=== PATIENT | male | born 1970 | race Caucasian/White ===

== ENCOUNTER → 2019-09-12 | Outpatient (CLI) | payer BC ==
[2019-09-12 15:12] LABS: HCT 48.5 % (39.0-53.0); HGB 15.9 gm/dL (13.0-17.5); MCH 30.7 pg (25.0-35.0); MCHC 32.7 g/dL (31.0-37.0); MCV 93.7 fL (80.0-100.0); Mean Platelet Volume 7.2; Platelet Count 234 k/uL (150-450); RBC 5.18 m/uL (4.30-5.90); WBC 8.5 k/uL (3.8-10.6)
[2019-09-12 20:02] LABS: African American GFR (CKD) 102.7 (60.0-200.0); Albumin 4.3 g/dL (3.80-4.90); Albumin/Globulin Ratio 1.79 (1.60-3.17); Calcium 9.4 mg/dL (8.7-10.3); Globulin 2.4 g/dL (1.6-3.3); Non-African American GFR(CKD) 88.6 (60.0-200.0); Potassium 4.3 mmol/L (3.5-5.5); Total Bilirubin 0.4 mg/dL (0.3-1.2); Total Protein 6.7 g/dL (6.2-8.2)
== END | disposition home or self-care (01) ==
LOC: LABWHC1 14:36
PROVIDERS: ATTEND Internal Medicine Gastroenterology
DX: K50.90 Crohn's disease, unspecified, without complications (principal)
CPT/HCPCS: 36415; 80053; 85027

== ENCOUNTER 2023-03-10 10:18 | Day surgery (SDC) | payer BC ==
[2023-03-08 16:00] VITALS: BMI 31.8
[2023-03-10] MEDS ORDERED: LACTATED RINGERS 1,000 ML IV ONE (11:17)
[2023-03-10] MEDS ORDERED: LACTATED RINGERS 1,000 ML IV SCH (11:25)
[2023-03-10 11:33] LABS: Glucose,Whole Blood 102 mg/dL (70-110)
[2023-03-10 11:37] VITALS: TEMP 97.5
[2023-03-10] MEDS ORDERED: LIDOCAINE 1% INJ 10MG/ML (20 ML MDV) ONE (12:37)
[2023-03-10] MEDS ORDERED: PROPOFOL 10 MG/ML 20 ML VIAL IV ONE (12:37)
--- NOTE | 2023-03-10 12:56 | P.PCN ---
Date of Procedure: 03/10/23 Procedure(s) Performed: BRIEF HISTORY: Patient is a 52-year-old pleasant white male scheduled for an elective colonoscopy as a part of surveillance of long-standing history of Crohn's disease that was diagnosed at age 31. He is status post terminal ileum and right colon resection approximately 10 years ago. 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 He is maintained on Humira injections every 2 weeks and remains in clinical remission. PROCEDURE PERFORMED: Colonoscopy with biopsy. PREOPERATIVE DIAGNOSIS: Long-standing history of Crohn's disease. IV sedation per Anesthesia. PROCEDURE: After informed consent was obtained, the patient, was brought into the endoscopy unit. IV sedation was administered by Anesthesia under continuous monitoring. Digital rectal examination was normal. Initially the Olympus CF-160 flexible video colonoscope was then inserted in the rectum, gradually advanced into the right colon with the ileocolic anastomosis was visualized. There was mild narrowing of the anastomosis with one superficial erosion and biopsies were done from this area. Was unable to advance the scope into the distal ileum. Mucosa of the transverse colon, descending colon, up in normal. The sigmoid: There was a 3 mm polyp that was removed by cold biopsy. Rest of the sigmoid colon, and rectum appeared normal. Retroflexion was performed in the rectum and no lesions were seen. The patient tolerated the procedure well. IMPRESSION: Mild narrowing of the ileocolonic anastomosis with one superficial erosion status post biopsy 3 mm; sigmoid polyp status post cold biopsy RECOMMENDATIONS: Findings of this examination were discussed with the patient well as his family. He was advised to follow with the biopsy results. Continue with Humira injections every 2 weeks. Follow up in office in 3 months. Repeat colonoscopy in 5 years..
[2023-03-10 13:41] VITALS: BP 122/82; PULSE 78; RESP 16
== END 2023-03-10 13:55 | disposition home or self-care (01) ==
LOC: ORWHC2ENDO 10:18
PROVIDERS: ATTEND Internal Medicine Gastroenterology
DX: D12.5 Benign neoplasm of sigmoid colon (principal); K63.5 Polyp of colon; K50.90 Crohn's disease, unspecified, without complications; Z88.1 Allergy status to other antibiotic agents; Z98.890 Other specified postprocedural states; Z79.899 Other long term (current) drug therapy
CPT/HCPCS: 88305; 45380; J2001; J2704

== ENCOUNTER → 2024-07-27 | Outpatient (CLI) | payer BC ==
[2024-07-27 15:34] LABS: HCT 51.3 % (39.6-50.0); HGB 17.2 g/dL (13.0-17.0); MCH 31.3 pg (27.0-32.0); MCHC 33.5 g/dL (32.0-37.0); MCV 93.3 FL (80.0-97.0); Mean Platelet Volume 9.9 FL (9.5-12.2); NRBC Per 100 WBC 0 X 10*3/uL (0.00-0.01); Platelet Count 240 X 10*3/uL (140-440); RDW 12.6 % (11.5-14.5); WBC 8.22 X 10*3/uL (4.50-10.00)
[2024-07-27 15:40] LABS: ALT 44 U/L (10-49); AST 32 U/L (14-35); Albumin 4.4 g/dL (3.8-4.9); Albumin/Globulin Ratio 1.57 Ratio (1.60-3.17); Alkaline Phosphatase 91 U/L (41-126); BUN/Creat Ratio 13.38 Ratio (12.00-20.00); Blood Urea Nitrogen 10.7 mg/dL (9.0-27.0); Calcium 9.4 mg/dL (8.7-10.3); Carbon Dioxide 28.6 mmol/L (21.6-31.8); Chloride 107 mmol/L (96-109); Globulin 2.8 g/dL (1.6-3.3); Glucose 125 mg/dL (70-110); Potassium 4.2 mmol/L (3.5-5.5); Sodium 147 mmol/L (135-145); Total Bilirubin 0.5 mg/dL (0.3-1.2); Total Protein 7.2 g/dL (6.2-8.2)
== END | disposition home or self-care (01) ==
LOC: LABWHC1 08:38
PROVIDERS: ATTEND Nurse Practitioner Family
DX: K50.90 Crohn's disease, unspecified, without complications (principal)
CPT/HCPCS: 36415; 80053; 85027; 86480